=== PATIENT | female | born 1980 | race Caucasian/White ===

== ENCOUNTER 2018-09-03 06:49 | Day surgery (SDC) | payer OTHER ==
[2018-09-02 09:09] LABS: CHLORIDE,CL 105 mmol/L (98-107); SODIUM,NA 141 mmol/L (136-145)
[~2018-09-03 06:49] MED LIST: Lactated Ringers 1,000 ML IV SCH
--- NOTE | 2018-09-03 07:02 | PCM.PREANE ---
Preanesthetic Assessment - Anesthesia/Transfusion/Family Hx Anesthesia History: Prior Anesthesia Without Reaction (essure coils, muriel, colonoscopy, breast biopsy, : no anesthesia issues noted.) Family History of Anesthesia Reaction: No Transfusion History: No Prior Transfusion(s) - Review of Systems General: No Symptoms Pulmonary: No Symptoms (quit smoking 2003) Cardiovascular: No Symptoms Gastrointestinal: No Symptoms Neurological: No Symptoms Other: Reports: None (overactive bladder) - Physical Assessment NPO Status Date: 09/03/18 NPO Status Time: 00:00 Pulse: 60 O2 Sat by Pulse Oximetry: 99 Respiratory Rate: 18 Blood Pressure: 119/70 Temperature: 36.1 C Height: 1.69 m Weight: 84.368 kg ASA Class: 2 Mental Status: Alert & Oriented x3 Airway Class: Mallampati = 1 Dentition: Reports: Normal Dentition Thyro-Mental Finger Breadths: 2 Mouth Opening Finger Breadths: 3 ROM/Head Extension: Full Lungs: Clear to Auscultation, Normal Respiratory Effort Cardiovascular: Regular Rate, Regular Rhythm, No Murmurs - Lab Values: Laboratory Last Values WBC 7.88 K/uL (4.0-11.0) 09/02/18 08:29 RBC 4.88 M/uL (4.30-5.90) 09/02/18 08:29 Hgb 13.4 g/dL (12.0-16.0) 09/02/18 08:29 Hct 41.9 % (36.0-46.0) 09/02/18 08:29 MCV 85.9 fL (80.0-98.0) 09/02/18 08:29 MCH 27.5 pg (27.0-32.0) 09/02/18 08:29 MCHC 32.0 g/dL (31.0-37.0) 09/02/18 08:29 RDW Std Deviation 45.3 fl (28.0-62.0) 09/02/18 08:29 RDW Coeff of Camron 15 % (11.0-15.0) 09/02/18 08:29 Plt Count 266 K/uL (150-400) 09/02/18 08:29 MPV 10.40 fL (7.40-12.00) 09/02/18 08:29 Nucleated RBC % 0.0 /100WBC 09/02/18 08:29 Nucleated RBCs # 0 K/uL 09/02/18 08:29 Sodium 141 mmol/L (136-145) 09/02/18 08:29 Potassium 4.1 mmol/L (3.5-5.1) 09/02/18 08:29 Chloride 105 mmol/L (98-107) 09/02/18 08:29 Carbon Dioxide 31.7 mmol/L (21.0-32.0) 09/02/18 08:29 BUN 13 mg/dL (7.0-18.0) 09/02/18 08:29 Creatinine 0.8 mg/dL (0.6-1.0) 09/02/18 08:29 Est Cr Clr Drug Dosing 89.20 mL/min 09/02/18 08:29 Estimated GFR (MDRD) > 60.0 ml/min 09/02/18 08:29 Glucose 75 mg/dL (74-106) 09/02/18 08:29 Calcium 9.8 mg/dL (8.5-10.1) 09/02/18 08:29 HCG, Qual NEGATIVE (NEG) 09/02/18 08:29 Blood Type A POSITIVE 09/02/18 08:29 Antibody Screen NEGATIVE 09/02/18 08:29 - Allergies Allergies/Adverse Reactions: Allergies Allergy/AdvReac Type Severity Reaction Status Date / Time No Known Allergies Allergy Verified 08/29/18 10:50 - Blood Blood Available: Yes Product(s) Available: PRBC (type and screen) - Acknowledgements Anesthesia Type Planned: General Anesthesia (GA discussed with patient and . All questions answerwed. 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: Reports: - Past Surgical History Head Surgeries/Procedures: Reports: None GI Surgical History: Reports: Cholecystectomy, Colonoscopy Female Surgical History: Reports: Breast Biopsy, Other (See Below) Other Female Surgeries/Procedures: ESSURE - SUBSTANCE USE Smoking Status *Q: Former Smoker Recreational Drug Use History: No - HOME MEDS Home Medications: Home Meds Acetaminophen [Tylenol] 2 tab PO ASDIRECTED PRN 08/29/18 [History] Ibuprofen 2 tab PO ASDIRECTED PRN 08/29/18 [History] Mirabegron [Myrbetriq] 50 mg PO DAILY 08/29/18 [History] - CURRENT (IN HOUSE) MEDS Current Meds: Current Medications Lactated Ringer's (Ringers, Lactated) 1,000 mls @ 125 mls/hr IV ASDIRECTED KUMAR
[2018-09-03] MEDS ORDERED: Lidocaine 2% 5 ML SDV ONE (07:23)
[2018-09-03] MEDS ORDERED: Ondansetron 4 MG/2 ML SDV ONE (07:23)
[2018-09-03] MEDS ORDERED: Ketorolac 30 MG/ML SDV ONE (07:23)
[2018-09-03] MEDS ORDERED: Propofol 200 MG/20 ML SDV ONE (07:23)
[2018-09-03] MEDS ORDERED: Midazolam 1 MG/ML 2 ML SDV ONE (07:23)
[2018-09-03] MEDS ORDERED: fentaNYL 250 MCG/5 ML SDV ONE (07:23)
[2018-09-03] MEDS ORDERED: Fluorescein 5 ML Vial ONE (07:39)
[2018-09-03] MEDS ORDERED: Bupivacaine 0.25% 10 ML SDV ONE (07:40)
[2018-09-03] MEDS ORDERED: Methylene Blue 50 MG/10 ML Ampule ONE (07:51)
[2018-09-03] MEDS ORDERED: Ondansetron 4 MG/2 ML SDV IVPUSH PRN ×2 (08:22→10:27)
[2018-09-03] MEDS ORDERED: HYDROmorphone 2 MG/ML SDV IVPUSH PRN (08:22)
[2018-09-03] MEDS ORDERED: Meperidine PF 25 MG/ML Syringe IVPUSH PRN (08:22)
[2018-09-03] MEDS ORDERED: Naloxone 0.4 MG/ML Syringe IVPUSH PRN (08:22)
[2018-09-03] MEDS ORDERED: Scopolamine 1.5 MG Transdermal Patch TRDERM PRN (08:22)
[2018-09-03] MEDS ORDERED: Meperidine PF 25 MG/ML Syringe IV PRN (08:22)
[2018-09-03] MEDS ORDERED: hydrALAZINE 20 MG/ML SDV IVPUSH PRN ×2 (08:22)
[2018-09-03] MEDS ORDERED: Atropine 1 MG/ML SDV IVPUSH PRN (08:22)
[2018-09-03] MEDS ORDERED: Labetalol 20 MG/4 ML Syringe IVPUSH PRN (08:22)
[2018-09-03] MEDS ORDERED: Promethazine 25 MG/ML SDV IM PRN ×2 (08:22→10:27)
[2018-09-03] MEDS ORDERED: Metoclopramide 10 MG/2 ML SDV IVPUSH PRN (08:22)
[2018-09-03] MEDS ORDERED: Albuterol 0.083% 2.5 MG/3 ML Neb Soln NEB PRN (08:22)
[2018-09-03] MEDS ORDERED: fentaNYL 100 MCG/2 ML SDV IVPUSH PRN (08:22)
[2018-09-03] MEDS ORDERED: Acetaminophen/HYDROcodone 325-5 MG Tab PO PRN (08:22)
[2018-09-03] MEDS ORDERED: Ketorolac 30 MG/ML SDV IVPUSH ONE (10:27)
[2018-09-03] MEDS ORDERED: Acetaminophen/oxyCODONE 325-5 MG Tab PO PRN (10:27)
--- NOTE | 2018-09-03 10:27 | PCM.OPNOTE ---
- General Post-Op/Procedure Note Date of Surgery/Procedure: 09/03/18 Operative Procedure(s): laparoscopically assisted vaginal hysterectomy, bilateral salpingectomy, anterior colporrhaphy, excision of peritoneal lesion, cystoscopy Findings: uterus 8 week size 2-3 degree prolapse, with enterocele 3rd degree cystocele, normal appearing tubes and ovaries with inflammatory adhesions in the pelvis with lesion in right cul de sac 3x2 cm excised fleshy, dark red. On cystoscopy there is normal appearing bladder mucosa and copious flow of bright green urine from bilateral ureteral orifices after IV florescein. Pre Op Diagnosis: heavy irregular periods, incomplete uterovaginal prolapse. Post-Op Diagnosis: Same Anesthesia Technique: General ET Tube Primary Surgeon: Suyapa Rausch Secondary Surgeon: Leslie Luna Anesthesia Provider: Dylan Andrade Pathology: uterus, bilateral fallopian tubes, pelvic peritoneal lesion, vaginal muscosa Fluid Replacement, Intraop: 1,800 EBL in mLs: 100 Drain/Tube Comments:: vaginal packing and urinary catheter in place Complications: None Condition: Good
--- NOTE | 2018-09-03 10:32 | PCM.POSTAN ---
POST ANESTHESIA ASSESSMENT - MENTAL STATUS Mental Status: Oriented, Somnolent (sleepybut responsive in pacu) - VITAL SIGNS Pulse Rate: 86 SaO2: 100 Resp Rate: 16 Blood Pressure: 110/60 Temperature: 36.5 C - RESPIRATORY Respiratory Status: Respiratory Rate WNL, Airway Patent, O2 Saturation Stable - CARDIOVASCULAR CV Status: Pulse Rate WNL, Elevated Blood Pressure - GASTROINTESTINAL GI Status: No Symptoms - PAIN Pain Score: 0 (says shejust has "cramping") - POST OP HYDRATION Hydration Status: Adequate & Stable - OBSERVATIONS Free Text/Narrative:: doing well in pacu phase I
[2018-09-03] MEDS: Morphine 4 MG/ML Syringe IVPUSH PRN ×2 (10:54→11:05)
[2018-09-03] MEDS ORDERED: HYDROmorphone 2 MG/ML Syringe IVPUSH PRN (11:00)
[2018-09-03] MEDS: Ketorolac 30 MG/ML SDV IVPUSH SCH ×3 (11:33→23:11)
[2018-09-03] MEDS: Acetaminophen/oxyCODONE 325-5 MG Tab PO PRN ×2 (11:51→16:06)
--- NOTE | 2018-09-03 12:47 | PCM48HPAN ---
Post Anesthesia Note - EVALUATION WITHIN 48HRS OF ANESTHETIC Vital Signs in Normal Range: Yes Patient Participated in Evaluation: Yes Respiratory Function Stable: Yes Airway Patent: Yes Cardiovascular Function Stable: Yes Hydration Status Stable: Yes Pain Control Satisfactory: Yes Nausea and Vomiting Control Satisfactory: Yes Pulse Rate: 86 Resp Rate: 16 Temperature: 36.5 C Blood Pressure: 110/60 - COMMENTS/OBSERVATIONS Free Text/Narrative:: pain still described as just "cramping". Eating jello. Doing well.
--- NOTE | 2018-09-03 17:12 | OR ---
SURGEON: Suyapa Rausch M.D. DATE OF PROCEDURE: 09/03/2018 PREOPERATIVE DIAGNOSES: Incomplete uterovaginal prolapse, heavy irregular periods. POSTOPERATIVE DIAGNOSES: Incomplete uterovaginal prolapse, heavy irregular periods. PROCEDURES PERFORMED: 1. Laparoscopically-assisted vaginal hysterectomy. 2. Bilateral salpingectomy. 3. Anterior colporrhaphy. 4. Excision of pelvic peritoneal lesion. 5. Cystoscopy. PRIMARY SURGEON: Suyapa Rausch MD. MECHANICAL DESIGN ENGINEER: Leslie Luna MD. ANESTHESIA: General endotracheal. FLUIDS: 1800 mL crystalloid. ESTIMATED BLOOD LOSS: 100 mL. FINDINGS: Uterus anteverted, third-degree prolapse with enterocele, and third-degree cystocele. Normal-appearing uterus, tubes, and ovaries otherwise. However, there were inflammatory adhesions in the pelvis and a 2 x 3 cm firm flesh like but dark red lesion attached to the right cul-de-sac which was excised. COMPLICATIONS: None known. DISPOSITION: Stable to recovery. BRIEF HISTORY: This is a 38-year-old female. She presents with extremely heavy periods associated with significant pain and cramping. She is unable to use oral contraceptive pills due to maternal cardiac . She has been offered Mirena or ablation. However, she declines due to the fact that she also has prolapse that she would like to have addressed at that time. She would like to proceed with a hysteroscopy with bilateral salpingectomy for risk reduction of ovarian cancer. She has also noticed worsening urinary urgency with at least 2 episodes of flooding. Her Myrbetriq has been helpful, but she does have a cystocele with urinary retention of 90 mL; and therefore, we are going to proceed with an anterior colporrhaphy at the time of hysterectomy. Surgical risks were discussed including bleeding; infection; injury to bowel, bladder, blood vessels, ureters, or other organs; risk of thromboembolic event; risk of recurrence of prolapse of 30% to 40%; risk of new onset stress incontinence; risk of anesthesia, and risk of change in sexual function. Understanding all these risks, she does desire to proceed. DESCRIPTION OF PROCEDURE: With the patient in dorsal lithotomy position, under adequate general endotracheal anesthesia, the abdomen was prepped with chlorhexidine; and the peritoneum and vagina were prepped with Betadine and draped in the usual fashion for a laparoscopically-assisted vaginal surgery. SCDs were in place. Perez catheter had been placed and backfilled with 30 mL of dilute methylene blue, and an appropriate time-out was held. She did receive 2 g of Ancef IV. After draping, a bimanual examination was performed with findings as noted above. Speculum was placed in the vagina. The ZUMI uterine manipulator was placed into the uterine cervix. The uterus had sounded to 9 cm. The speculum was removed. Laborer/Key Man's gloves were changed. Attention was then turned abdominally, where 2 mL of 0.25% Marcaine was injected superior to the umbilicus. A transverse 5-mm incision was made with a #11 blade scalpel over the prior incision site. The anterior abdominal wall was elevated. Veress needle was placed, and a pain drop test confirmed intraperitoneal placement. CO2 opening pressure was 1 mmHg. Therefore, CO2 was insufflated to develop an adequate pneumoperitoneum of 15 mmHg. A 5-mm port was placed. Two additional ports were placed 2 cm medial and cephalad from the anterior superior iliac spine on the right and the left using a similar technique without any difficulty and with no evidence of trauma from placement. The uterus was then elevated. The pelvis was inspected. There were some filmy adhesions between the fimbria of the tubes and the pelvis, and these were incised. Bilateral ureters were identified and were deep in the pelvis and well out of the field of dissection. The ligament between the fimbria of the tube and ovary was transected using a LigaSure. The mesosalpinx was then transected proximally to the uterus using the LigaSure. At this point, with the adhesions being removed, there was a remaining 3 cm firm mass attached to the peritoneum of the right cul-de-sac; and this was carefully dissected using sharp and blunt dissection along with the LigaSure. It was placed in the posterior cul-de-sac for removal at the time of the hysterectomy. The round ligaments were then doubly clamped and ligated using the LigaSure. The anterior peritoneum was entered using the LigaSure and incised anteriorly over the lower uterine segment on the right and the left. The posterior peritoneum was also entered providing excellent skeletonization of the uterine vessels which were doubly coagulated and ligated and cut with the LigaSure. This being complete, attention was then turned vaginally. After the abdomen was desufflated, the patient was placed in Trendelenburg position, and the weighted speculum was placed posteriorly. The bladder was released, and the right angle retractor was placed anteriorly. The cervix was grasped with a Odilia tenaculum and circumscribed using electrocautery. The posterior cul-de-sac was entered. The lesion that had been removed was not immediately apparent. Therefore, I went ahead and proceeded with a hysterectomy. The anterior cul-de-sac was entered without any difficulty, and the right angle retractor was placed anteriorly. The uterosacral ligaments were doubly clamped, cut, and ligated using a simple tie followed by Dylon ligature of 2-0 Polysorb. There was 1 additional pedicle taken on the left which was doubly clamped, cut, and ligated. The uterus and tubes were then delivered. Using a sponge stick, I was able to remove the free lesion that had been placed in the cul-de-sac, and this was sent to Pathology as a separate specimen. The retained uterosacral ligament ligatures were ligated to the vaginal apices bilaterally. The posterior peritoneum of the cul-de-sac was then purse-stringed using the retained ligatures from the uterosacral ligaments on the right and the left, and the 2 pursestrings were then tied in the midline providing reduction of the enterocele. At this point, a cystoscopy was performed after IV fluorescein and Lasix have been given, and there was copious flow of green urine from bilateral ureteral orifices. The anterior vaginal mucosa was then grasped with an Allis clamp approximately 2 cm cephalad from the urethral meatus. Hydrodissection was performed, and the anterior vagina was opened up to approximately 1 cm from the vaginal cuff. The muscularis layer was then dissected free from the overlying vaginal mucosa and reapproximated in the midline using interrupted mattress sutures of 2-0 Polysorb. The excess vaginal mucosa was trimmed, and the anterior incision was then closed with a running lock suture of 0 Polysorb. The vaginal cuff was then closed with a running suture of 0 Polysorb. The cystoscopy was then repeated again with good flow from bilateral ureters. No evidence of any trauma to the bladder mucosa. Therefore, the vagina was packed. The Perez catheter was replaced. Attention was then turned abdominally after the splicer operator's gloves were changed. The abdomen was reinsufflated. The pelvis was copiously irrigated and carefully examined under high and low pressure down to 5 mmHg, and the pelvis appeared completely hemostatic. The fluid was suctioned, and the instruments were removed from the abdomen. The abdomen was desufflated. The ports were removed. The skin was closed with a running subcuticular suture of 3- 0 Caprosyn. The final sponge, needle, and instrument counts were reported as correct. There were no known complications. The patient was transferred to recovery in good condition. MARCIA RIVERA /[id number]
--- NOTE | 2018-09-03 17:56 | PCM.SN ---
- Free Text/Narrative Note: pain well controlled, tolerating diet. Vital stable, reviewed operative findings, may saline lock IV, continue postop care.
[2018-09-04] MEDS: Ketorolac 30 MG/ML SDV IVPUSH SCH ×2 (04:55→09:44)
[2018-09-04 05:55] LABS: CHLORIDE,CL 108 mmol/L (98-107); SODIUM,NA 141 mmol/L (136-145)
[2018-09-04 07:29] VITALS: BP 120/67
[2018-09-04] MEDS ORDERED: HYDROmorphone 1 MG/ML Syringe IVPUSH PRN (08:00)
[2018-09-04] MEDS: Acetaminophen/oxyCODONE 325-5 MG Tab PO PRN (08:40)
--- NOTE | 2018-09-04 09:31 | PCM.SURGPN ---
- General Info Date of Service: 09/04/18 Date of Surgery/Procedure: 09/03/18 POD#: 1 Post-Op Diagnosis: incomplete uterovaginal prolapse, menorrhagia Functional Status: Reports: Pain Controlled, Tolerating Diet, Ambulating. Denies: Urinating - Review of Systems General: Reports: No Symptoms HEENT: Reports: No Symptoms Pulmonary: Reports: No Symptoms Cardiovascular: Reports: No Symptoms Gastrointestinal: Reports: No Symptoms Genitourinary: Reports: No Symptoms Musculoskeletal: Reports: No Symptoms Skin: Reports: No Symptoms Neurological: Reports: No Symptoms Psychiatric: Reports: No Symptoms - Patient Data Vitals - Most Recent: Last Vital Signs Temp 36.4 C 09/04/18 07:28 Pulse 81 09/04/18 07:28 Resp 16 09/04/18 07:28 BP 120/67 09/04/18 07:28 Pulse Ox 98 09/04/18 07:28 Weight - Most Recent: 84.368 kg I&O - Last 24 Hours: Intake & Output 09/03/18 09/04/18 09/04/18 22:59 06:59 14:59 Intake Total 2110 900 Output Total 250 2815 Balance 1860 -1915 Lab Results Last 24 Hrs: Laboratory Results - last 24 hr 09/04/18 09/04/18 Range/Units 05:27 05:27 WBC 17.65 H (4.0-11.0) K/uL RBC 4.14 L (4.30-5.90) M/uL Hgb 11.2 L (12.0-16.0) g/dL Hct 35.5 L (36.0-46.0) % MCV 85.7 (80.0-98.0) fL MCH 27.1 (27.0-32.0) pg MCHC 31.5 (31.0-37.0) g/dL RDW Std Deviation 44.8 (28.0-62.0) fl RDW Coeff of Camron 14 (11.0-15.0) % Plt Count 253 (150-400) K/uL MPV 10.60 (7.40-12.00) fL Neut % (Auto) 81.0 H (48.0-80.0) % Lymph % (Auto) 12.4 L (16.0-40.0) % [place] % (Auto) 6.5 (0.0-15.0) % Eos % (Auto) 0.0 (0.0-7.0) % Baso % (Auto) 0.1 (0.0-1.5) % Neut # (Auto) 14.3 H (1.4-5.7) K/uL Lymph # (Auto) 2.2 (0.6-2.4) K/uL [place] # (Auto) 1.1 H (0.0-0.8) K/uL Eos # (Auto) 0.0 (0.0-0.7) K/uL Baso # (Auto) 0.0 (0.0-0.1) K/uL Nucleated RBC % 0.0 /100WBC Nucleated RBCs # 0 K/uL Sodium 141 (136-145) mmol/L Potassium 3.9 (3.5-5.1) mmol/L Chloride 108 H (98-107) mmol/L Carbon Dioxide 26.7 (21.0-32.0) mmol/L BUN 9 (7.0-18.0) mg/dL Creatinine 0.7 (0.6-1.0) mg/dL Est Cr Clr Drug Dosing 101.95 mL/min Estimated GFR (MDRD) > 60.0 ml/min Glucose 105 (74-106) mg/dL Calcium 8.8 (8.5-10.1) mg/dL Med Orders - Current: Current Medications Hydrocodone Bitart/Acetaminophen (Archbald 325-5 Mg) 2 tab PO Q6H PRN PRN Reason: Pain (moderate 4-6) Albuterol (Proventil Neb Soln) 2.5 mg NEB Q6HRRT PRN PRN Reason: Wheezing Atropine Sulfate (Atropine 1 Mg/Ml) 0.4 mg IVPUSH Q5M PRN PRN Reason: Bradycardia Hydralazine HCl (Apresoline) 5 mg IVPUSH ONETIME PRN PRN Reason: Hypertension Hydralazine HCl (Apresoline) 10 mg IVPUSH ONETIME PRN PRN Reason: Hypertension Ketorolac Tromethamine (Toradol) 30 mg IVPUSH Q6H KUMAR Stop: 09/08/18 10:28 Last Admin: 09/04/18 04:55 Dose: 30 mg Meperidine HCl (Demerol) 12.5 mg IVPUSH ONETIME PRN PRN Reason: Shivering Meperidine HCl (Demerol) 25 mg IV ONETIME PRN PRN Reason: Shivering Last Admin: 09/03/18 10:34 Dose: 12.5 mg Metoclopramide HCl (Reglan) 10 mg IVPUSH ONETIME PRN PRN Reason: Nausea Morphine Sulfate (Morphine Sulfate) 4 mg IV Q2H PRN PRN Reason: Pain (severe 7-10) Naloxone HCl (Narcan) 0.1 mg IVPUSH ONETIME PRN PRN Reason: Respiratory Depression Ondansetron HCl (Zofran) 8 mg IVPUSH ONETIME PRN PRN Reason: Nausea Ondansetron HCl (Zofran) 4 mg IVPUSH Q6H PRN PRN Reason: Nausea/Vomiting Oxycodone/Acetaminophen (Percocet 325-5 Mg) 1 tab PO Q4H PRN PRN Reason: Pain (moderate 4-6) Last Admin: 09/04/18 08:40 Dose: 1 tab Oxycodone/Acetaminophen (Percocet 325-5 Mg) 2 tab PO Q4H PRN PRN Reason: Pain (moderate 4-6) Promethazine HCl (Phenergan) 12.5 mg IM ONETIME PRN PRN Reason: Nausea Promethazine HCl (Phenergan) 25 mg IM Q6H PRN PRN Reason: Nausea/Vomiting Scopolamine (Transderm-Scop) 1.5 mg TRDERM Q72H PRN PRN Reason: Nausea Discontinued Medications Bupivacaine HCl (Sensorcaine-Mpf 0.25%) Confirm Administered Dose 20 ml .ROUTE .STK-MED ONE Stop: 09/03/18 07:41 Fentanyl (Sublimaze) Confirm Administered Dose 250 mcg .ROUTE .STK-MED ONE Stop: 09/03/18 07:24 Fentanyl (Sublimaze) 50 mcg IVPUSH Q5M PRN PRN Reason: Pain (severe 7-10) Stop: 09/04/18 08:22 Fluorescein Sodium (Ak-Fluor) Confirm Administered Dose 5 ml .ROUTE .STK-MED ONE Stop: 09/03/18 07:40 Hydromorphone HCl (Dilaudid) 0.25 mg IVPUSH Q10M PRN PRN Reason: Pain (severe 7-10) Stop: 09/04/18 08:22 Last Admin: 09/03/18 10:51 Dose: 0.25 mg Hydromorphone HCl (Dilaudid) 0.25 mg IVPUSH Q10M PRN PRN Reason: Pain (severe 7-10) Stop: 09/04/18 08:22 Hydromorphone HCl (Dilaudid) 0.25 mg IVPUSH Q10M PRN PRN Reason: Pain (severe 7-10) Stop: 09/04/18 08:22 Lactated Ringer's (Ringers, Lactated) 1,000 mls @ 125 mls/hr IV ASDIRECTED KUMAR Last Admin: 09/03/18 07:18 Dose: 125 mls/hr Ketorolac Tromethamine (Toradol) Confirm Administered Dose 30 mg .ROUTE .STK- MED ONE Stop: 09/03/18 07:24 Ketorolac Tromethamine (Toradol) 30 mg IVPUSH ONETIME ONE Stop: 09/03/18 10:28 Last Admin: 09/03/18 10:40 Dose: 30 mg Labetalol HCl (Normodyne) 10 mg IVPUSH Q6H PRN PRN Reason: Hypertension Stop: 09/04/18 08:22 Lidocaine (Xylocaine-Mpf 2%) Confirm Administered Dose 5 ml .ROUTE .STK-MED ONE Stop: 09/03/18 07:24 Methylene Blue (Provayblue) Confirm Administered Dose 50 mg .ROUTE .STK-MED ONE Stop: 09/03/18 07:52 Midazolam HCl (Versed 1 Mg/Ml) Confirm Administered Dose 2 mg .ROUTE .STK-MED ONE Stop: 09/03/18 07:24 Morphine Sulfate (Morphine) 4 mg IVPUSH Q10M PRN PRN Reason: Pain (severe 7-10) Stop: 09/04/18 08:22 Last Admin: 09/03/18 11:05 Dose: 4 mg Ondansetron HCl (Zofran) Confirm Administered Dose 8 mg .ROUTE .STK-MED ONE Stop: 09/03/18 07:24 Propofol (Diprivan 20 Ml) Confirm Administered Dose 200 mg .ROUTE .STK-MED ONE Stop: 09/03/18 07:24 - Exam Wound/Incisions: Dressing Dry and Intact General: Alert, Oriented Neck: Supple Lungs: Clear to Auscultation, Normal Respiratory Effort Cardiovascular: Regular Rate, Regular Rhythm GI/Abdominal Exam: Normal Bowel Sounds, Soft, Non-Tender, No Organomegaly, No Distention Extremities: Normal Inspection, Non-Tender, No Pedal Edema Skin: Warm Psy/Mental Status: Alert, Normal Affect, Normal Mood - Problem List & Annotations (1) Prolapsed, uterovaginal, incomplete SNOMED Code(s): 242833046 Code(s): N81.2 - INCOMPLETE UTEROVAGINAL PROLAPSE Status: Acute Current Visit: Yes (2) Menorrhagia SNOMED Code(s): 917000532 Code(s): N92.0 - EXCESSIVE AND FREQUENT MENSTRUATION WITH REGULAR CYCLE Status: Acute Current Visit: Yes Qualifiers: Menorrahagia type: with regular cycle Qualified Code(s): N92.0 - Excessive and frequent menstruation with regular cycle - Problem List Review Problem List Initiated/Reviewed/Updated: Yes - My Orders Last 24 Hours: Active Orders 24 hr Category Date Time Status Patient Status [ADT] Routine ADT 09/03/18 10:28 Active Notify Provider Intake and Out [RC] ASDIRECTED Care 09/03/18 10:28 Active Notify Provider Vital Signs [RC] ASDIRECTED Care 09/03/18 10:28 Active Oxygen Therapy [RC] ASDIRECTED Care 09/03/18 10:28 Active RT Incentive Spirometry [RC] Q2HWA Care 09/03/18 10:28 Active Up With Assistance [RC] PER UNIT ROUTINE Care 09/03/18 10:28 Active Up ad Nora [RC] PER UNIT ROUTINE Care 09/03/18 10:28 Active Urinary Catheter Removal [RC] AMPROC Care 09/03/18 10:28 Active Vital Signs [RC] Q4H Care 09/03/18 10:28 Active Regular Diet [DIET] Diet 09/03/18 Dinner Active Acetaminophen/oxyCODONE [Percocet 325-5 MG] Med 09/03/18 10:27 Active 1 tab PO Q4H PRN Acetaminophen/oxyCODONE [Percocet 325-5 MG] Med 09/03/18 10:27 Active 2 tab PO Q4H PRN Ketorolac [Toradol] Med 09/03/18 10:30 Active 30 mg IVPUSH Q6H Morphine Sulfate Med 09/03/18 10:27 Active 4 mg IV Q2H PRN Ondansetron [Zofran] Med 09/03/18 10:27 Active 4 mg IVPUSH Q6H PRN Promethazine [Phenergan] Med 09/03/18 10:27 Active 25 mg IM Q6H PRN Peripheral IV Discontinue [OM.PC] Routine Oth 09/03/18 10:28 Ordered Remove Vaginal Packing [OM.PC] Per Unit Routine Oth 09/03/18 10:29 Ordered Sequential Compression Device [OM.PC] Per Unit Routine Oth 09/03/18 10:28 Ordered Resuscitation Status Routine Resus Stat 09/03/18 10:27 Ordered Medication Orders Hydrocodone Bitart/Acetaminophen (Archbald 325-5 Mg) 2 tab PO Q6H PRN PRN Reason: Pain (moderate 4-6) Albuterol (Proventil Neb Soln) 2.5 mg NEB Q6HRRT PRN PRN Reason: Wheezing Atropine Sulfate (Atropine 1 Mg/Ml) 0.4 mg IVPUSH Q5M PRN PRN Reason: Bradycardia Hydralazine HCl (Apresoline) 5 mg IVPUSH ONETIME PRN PRN Reason: Hypertension Hydralazine HCl (Apresoline) 10 mg IVPUSH ONETIME PRN PRN Reason: Hypertension Ketorolac Tromethamine (Toradol) 30 mg IVPUSH Q6H KUMAR Stop: 09/08/18 10:28 Last Admin: 09/04/18 04:55 Dose: 30 mg Admin: 09/03/18 23:11 Dose: 30 mg Admin: 09/03/18 16:06 Dose: 30 mg Admin: 09/03/18 11:33 Dose: Meperidine HCl (Demerol) 12.5 mg IVPUSH ONETIME PRN PRN Reason: Shivering Meperidine HCl (Demerol) 25 mg IV ONETIME PRN PRN Reason: Shivering Last Admin: 09/03/18 10:34 Dose: 12.5 mg Metoclopramide HCl (Reglan) 10 mg IVPUSH ONETIME PRN PRN Reason: Nausea Morphine Sulfate (Morphine Sulfate) 4 mg IV Q2H PRN PRN Reason: Pain (severe 7-10) Naloxone HCl (Narcan) 0.1 mg IVPUSH ONETIME PRN PRN Reason: Respiratory Depression Ondansetron HCl (Zofran) 8 mg IVPUSH ONETIME PRN PRN Reason: Nausea Ondansetron HCl (Zofran) 4 mg IVPUSH Q6H PRN PRN Reason: Nausea/Vomiting Oxycodone/Acetaminophen (Percocet 325-5 Mg) 1 tab PO Q4H PRN PRN Reason: Pain (moderate 4-6) Last Admin: 09/04/18 08:40 Dose: 1 tab Admin: 09/03/18 16:06 Dose: 1 tab Admin: 09/03/18 11:51 Dose: 1 tab Oxycodone/Acetaminophen (Percocet 325-5 Mg) 2 tab PO Q4H PRN PRN Reason: Pain (moderate 4-6) Promethazine HCl (Phenergan) 12.5 mg IM ONETIME PRN PRN Reason: Nausea Promethazine HCl (Phenergan) 25 mg IM Q6H PRN PRN Reason: Nausea/Vomiting Scopolamine (Transderm-Scop) 1.5 mg TRDERM Q72H PRN PRN Reason: Nausea - Assessment Assessment (Free Text/Narrative):: POD#1 after LAVH, bilateral salpingectomy, excision of pelvic lesion, anterior colporrhaphy and cystoscopy. She is tolerating diet, pain is well controlled, she has minimal vaginal drainage. She can be discharged after voiding today. - Plan Plan (Free Text/Narrative):: Discharge instructions and precautions reviewed.
== END 2018-09-04 10:41 | disposition home or self-care (01) ==
LOC: MW.SDS 06:49 → MW.MS 10:22 → MW.SDS 09-04 10:41
PROVIDERS: ATTEND Obstetrics & Gynecology
DX: N81.2 Incomplete uterovaginal prolapse (principal); N80.3 Endometriosis of pelvic peritoneum; Z87.891 Personal history of nicotine dependence; Z79.899 Other long term (current) drug therapy
CPT/HCPCS: 36415; 80048; 84703; 85025; 85027; 86850; 86900; 86901; 88302; 88305; 88307; A9270-GY; J1170; J1885; J2175; J2250; J2270; J2405; J2704; J3010; J3490; J7120

== ENCOUNTER 2021-04-23 11:29 | Emergency (ER) | payer SELFPAY ==
--- NOTE | 2021-04-23 17:05 | EDM.PDOC ---
ED HPI GENERAL MEDICAL PROBLEM - General Chief Complaint: Skin Complaint Stated Complaint: STUNG BY A BEE Time Seen by Provider: 04/23/21 16:42 Source of Information: Reports: Patient History Limitations: Reports: No Limitations - History of Present Illness INITIAL COMMENTS - FREE TEXT/NARRATIVE: 41-year-old female presents for bee sting to the left forearm. Occurred yesterday around 3 PM. She could not get the stinger out. She notes redness and swelling around the area. It is itchy. Denies any shortness of breath or tightness in her throat. No nausea or vomiting. Left Arm Pain Score (Numeric/FACES): 6 - Related Data Allergies Allergy/AdvReac Type Severity Reaction Status Date / Time No Known Allergies Allergy Verified 08/29/18 10:50 Home Meds: Home Meds Acetaminophen [Tylenol] 2 tab PO ASDIRECTED PRN 08/29/18 [History] Ibuprofen 2 tab PO ASDIRECTED PRN 08/29/18 [History] Mirabegron [Myrbetriq] 50 mg PO DAILY 08/29/18 [History] Acetaminophen/oxyCODONE [Percocet 325-5 MG] 1 tab PO Q4H PRN #20 tablet 09/04/18 [Rx] Hydrocortisone [Hydrocortisone 2.5% Crm] 1 gm TOP TID #1 tube 04/23/21 [Rx] Hydrocortisone [Hydrocortisone 2.5% Crm] 1 gm TOP TID #1 tube 04/23/21 [Rx] predniSONE 20 mg PO DAILY #5 tab 04/23/21 [Rx] predniSONE [Prednisone] 20 mg PO DAILY #5 tablet 04/23/21 [Rx] Past Medical History Gastrointestinal History: Reports: Other (See Below) Other Gastrointestinal History: occasional heartburn Genitourinary History: Reports: None 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 ED EXAM, SKIN/RASH Exam: See Below Exam Limited By: No Limitations General Appearance: Alert, WD/WN, No Apparent Distress Throat/Mouth: Normal Voice, No Airway Compromise Head: Atraumatic, Normocephalic Neck: Normal Inspection Respiratory/Chest: No Respiratory Distress, No Accessory Muscle Use Cardiovascular: Normal Peripheral Pulses, Regular Rate, Rhythm Extremities: Normal Inspection Neurological: Alert, Normal Cognition, Normal Gait Psychiatric: Normal Affect, Normal Mood Skin: Warm, Dry, Intact, Normal Color, Other (area of erythema roughly 12-cm on L arm with small area in center of stuck FB) ED SKIN PROCEDURES - Foreign Body Removal Indication:: bee stinger stuck in arm Consent Obtained:: Patient Performing Doctor:: Shawn So Anesthesia Type: Local Anesthesia Other:: lidocaine 1% c epi Findings:: an 11 blade scalpel was used to remove the object. No complications Complications:: No Course - Vital Signs Last Recorded V/S: Last Vital Signs Temp 97.2 F 04/23/21 15:42 Pulse 91 04/23/21 17:10 Resp 20 04/23/21 17:10 BP 115/83 04/23/21 17:10 Pulse Ox 97 04/23/21 17:10 Departure - Departure Time of Disposition: 17:04 Disposition: Home, Self-Care 01 Condition: Good Clinical Impression: Bee sting Qualifiers: Encounter type: initial encounter Injury intent: accidental or unintentional Qualified Code(s): T63.441A - Toxic effect of venom of bees, accidental (unintentional), initial encounter - Discharge Information Prescriptions: Hydrocortisone [Hydrocortisone 2.5% Crm] 1 gm TOP TID #1 tube Hydrocortisone [Hydrocortisone 2.5% Crm] 1 gm TOP TID #1 tube predniSONE 20 mg PO DAILY #5 tab predniSONE [Prednisone] 20 mg PO DAILY #5 tablet Instructions: Bee, Wasp, or Hornet Sting, Adult Referrals: Tone Hylton MD [Primary Care Provider] - Forms: ED Department Discharge Additional Instructions: The following information is given to patients seen in the emergency department who are being discharged to home. This information is to outline your options for follow-up care. We provide all patients seen in our emergency department with a follow-up referral. The need for follow-up, as well as the timing and circumstances, are variable depending upon the specifics of your emergency department visit. If you don't have a primary care physician on staff, we will provide you with a referral. We always advise you to contact your personal physician following an emergency department visit to inform them of the circumstance of the visit and for follow-up with them and/or the need for any referrals to a consulting specialist. The emergency department will also refer you to a specialist when appropriate. This referral assures that you have the opportunity for follow-up care with a specialist. All of these measure are taken in an effort to provide you with optimal care, which includes your follow-up. Under all circumstances we always encourage you to contact your private physician who remains a resource for coordinating your care. When calling for follow-up care, please make the office aware that this follow-up is from your recent emergency room visit. If for any reason you are refused follow-up, please contact the [facility] Emergency Department at and asked to speak to the emergency department charge nurse. Please follow up with your primary care physician. If you do not have a primary care physician, see below: [facility] [address] [place] [phone] [facility] [address] [place] [id number] [facility] [address] [place] [address] Sepsis Event Note (ED) - Focused Exam Vital Signs: Vital Signs Temp Pulse Resp BP Pulse Ox 04/23/21 17:10 91 20 115/83 97 04/23/21 15:42 97.2 F 99 18 121/78 100
[2021-04-23 17:11] VITALS: BP 115/83; PULSE 91
== END 2021-04-23 17:12 | disposition home or self-care (01) ==
LOC: MW.ED 11:29
DX: T63.441A Toxic effect of venom of bees, accidental (unintentional), initial encounter (principal)
CPT/HCPCS: 99282